=== PATIENT | female | born 1995 | race Caucasian/White ===

== ENCOUNTER 2024-05-02 14:08 | Emergency (ER) | payer MEDICAID ==
[~2024-05-02] VITALS: Ht 165.1 cm; Wt 59.9 kg
[2024-05-02 14:14] VITALS: BP 113/68; PULSE 66; RESP 18; TEMP 98.2; O2SAT 100
[2024-05-02] MEDS ORDERED: IBUP-2213 PO (15:08)
== END 2024-05-02 15:22 | disposition home or self-care (01) ==
LOC: MED 14:08
DX: S06.0X0A Concussion without loss of consciousness, initial encounter (principal); Z88.5 Allergy status to narcotic agent; Z88.6 Allergy status to analgesic agent; W18.39XA Other fall on same level, initial encounter; Y92.89 Other specified places as the place of occurrence of the external cause; Y93.89 Activity, other specified; Y99.8 Other external cause status
CPT/HCPCS: 99282